=== PATIENT | female | born 1975 | race Caucasian/White ===

== ENCOUNTER 2016-04-25 07:11 | Day surgery (SDC) | payer OTHER, BC ==
[2016-04-25] MEDS ORDERED: CEFAZOLIN SODIUM 2 GRAM DUPLEX 2 G in Premix (D5W) 50 ml 1 EACH IV PRN (07:16)
[2016-04-25] MEDS ORDERED: LIDOCAINE 1% 2 ML VIAL ID PRN (07:16)
[2016-04-25] MEDS ORDERED: LACTATED RINGERS 1,000 ML IV SCH ×2 (07:16→09:45)
[2016-04-25] MEDS ORDERED: IV START KIT ONE (07:19)
[2016-04-25] MEDS ORDERED: CEFAZOLIN SODIUM 2 GRAM PREMIX 100 ML IV ONE (07:20)
[2016-04-25] MEDS ORDERED: MIDAZOLAM HCL 5 MG/5 ML VIAL ONE (08:08)
[2016-04-25] MEDS ORDERED: PROPOFOL 20 ML IV ONE (08:08)
[2016-04-25] MEDS ORDERED: KETAMINE HCL UD SYRINGE 100 MG/2 ML IV ONE (08:08)
[2016-04-25] MEDS ORDERED: MORPHINE SULFATE (DURAMORPH) 1 MG/ML 10ML AMP ONE (08:10)
[2016-04-25] MEDS ORDERED: BUPIVACAINE 0.75% SPINAL AMPUL 2 ML ONE (08:10)
[2016-04-25] MEDS ORDERED: SPINAL PROCEDURAL TRAY 1 EACH ONE (09:23)
[2016-04-25] MEDS ORDERED: PROMETHAZINE HCL 25 MG/ML VIAL IM PRN (09:44)
[2016-04-25] MEDS ORDERED: EPHEDRINE SULFATE 50 MG/ML 1ML VIAL IV PRN (09:44)
[2016-04-25] MEDS ORDERED: FENTANYL 100 MCG/2 ML VIAL IV PRN (09:44)
[2016-04-25] MEDS ORDERED: ATROPINE SULFATE 0.4 MG/1 ML VIAL IV PRN (09:44)
[2016-04-25] MEDS ORDERED: HYDROMORPHONE HCL 1 MG/ML SYRINGE IV PRN ×2 (09:44→10:18)
[2016-04-25] MEDS ORDERED: NALOXONE HCL 0.4 MG/ML VIAL IV PRN ×2 (09:44)
[2016-04-25] MEDS ORDERED: ONDANSETRON 4 MG/2ML 2 ML VIAL IV PRN ×2 (09:44→12:18)
[2016-04-25] MEDS ORDERED: OXYCODONE/ACETAMINOPHEN 5/325 MG TABLET PO PRN (09:44)
[2016-04-25] MEDS ORDERED: EPHEDRINE SULFATE UD SYR 25 MG 25 MG/5 ML SYRINGE IV ONE (10:08)
--- NOTE | 2016-04-25 11:17 | OP ---
Carolina Foote DATE OF ADMISSION: 04/25/2016 SURGEON: Sriram Rodriges M.D. [employer]CH[employer]IC SURGEON: Dr. Herbert Fowler. PREOPERATIVE DIAGNOSES: 1. Menorrhea. 2. Uterine leiomyoma's. 3. Iron deficiency anemia secondary to chronic blood loss. POSTOPERATIE DIAGNOSES: 1. Menorrhea. 2. Uterine leiomyoma's. 3. Iron deficiency anemia secondary to chronic blood loss. OPERATION: Vaginal hysterectomy. ANESTHESIA: Spinal. FINDINGS: The uterus was approximately 10 weeks size. There were multiple leiomyoma's. There was also a large submucous leiomyoma. TECHNICAL PROCEDURE: After induction of satisfactory spinal anesthesia the patient was placed in the supine lithotomy position and prepped and draped in the usual fashion. A weighted speculum was placed in the vagina and the cervix grasped with a double tooth tenaculum. The cul-de-sac was entered posteriorly using the Coffey scissors and the vaginal cuff was incised circumferentially at this level. The bladder was advanced cephalad and the vesicouterine peritoneum identified and incised with the Coffey scissors and a Mady retractor placed anteriorly. The left uterosacral ligament was clamped with a Kathryn clamp, divided, and sutured ligated with 0 Vicryl. The same procedure was repeated on the right. The right cardinal ligament was clamped with a Kathryn clamp, divided and suture ligated with 0 Vicryl. The same procedure was repeated on the left. The left uterine artery was clamped with a Kathryn clamp, divided, and suture ligated with 0 Vicryl. The same procedure was repeated on the right. The right round ligament was clamped with Kathryn clamp, divided, and suture ligated with 0 Vicryl. The same procedure was repeated on the left. The left uteroovarian ligament and Fallopian tube were then crossed clamped with a Kathryn clamp and divided. The same procedure was repeated on the right thus removing the uterus. The pedicles thus created were suture ligated with 0 Vicryl. When hemostasis in the pedicles was assured the peritoneum was closed with a purse string suture of 0 Vicryl. The vaginal cuff was then closed from side to side using interrupted figure of eight sutures of 0 Vicryl. The instruments were removed from the vagina. The bladder was catheterized with a straight catheter and 300 mL of clear urine was obtained. The procedure was then terminated. The patient tolerated the procedure well and left the operating room awake and in good condition. There were no complications. Instrument, needle, and sponge counts were correct. The estimated blood loss was 100 mL. There was no blood replacement. JOB: [id number]
[2016-04-25 11:38] VITALS: BMI 21.9
[2016-04-25] MEDS ORDERED: ALBUTEROL SULFATE MDI 60 PUFFS/INHALER IH PRN (12:00)
[2016-04-25] MEDS ORDERED: PROMETHAZINE HCL 25 MG TABLET PO PRN (12:18)
[2016-04-25] MEDS ORDERED: DIPHENHYDRAMINE HCL 50 MG/1 ML VIAL IV PRN (12:18)
[2016-04-25] MEDS ORDERED: ACETAMINOPHEN 325 MG TABLET PO PRN (12:18)
[2016-04-25] MEDS ORDERED: MAGNESIUM HYDROXIDE/AL HYDROX 30 ML UDCUP PO PRN (12:18)
[2016-04-25] MEDS ORDERED: MAG HYDROX/AL HYDROX/SIMETH 30 ML UDCUP PO PRN (12:18)
[2016-04-25] MEDS ORDERED: MENTHOL/CETYLPYRD 1 EACH LOZENGE PO PRN (12:18)
[2016-04-25] MEDS ORDERED: BLISTEX LIPSTICK 1 EACH TP PRN (12:18)
[2016-04-25] MEDS ORDERED: DOCUSATE SODIUM 100 MG CAPSULE PO PRN (12:18)
[2016-04-25] MEDS ORDERED: PUMP TUBING ONE (12:51)
[2016-04-25] MEDS: D5 1/4NS with 20 mEq KCL 1,000 ML IV SCH ×2 (12:55→21:15)
[2016-04-25] MEDS: FLUTICASONE PROPIONATE 50 MCG/SPRAY 120 SPRAYS/16 G INH NS SCH (23:20)
[2016-04-25] MEDS ORDERED: OXYCODONE HCL 5 MG TABLET ONE (23:32)
[2016-04-25] MEDS ORDERED: OXYCODONE HCL 5 MG TABLET PO PRN (23:50)
[2016-04-26] MEDS: D5 1/4NS with 20 mEq KCL 1,000 ML IV SCH (04:55)
[2016-04-26 06:25] LABS: HEMATOCRIT 29.8 % (37.0-47.0); HEMOGLOBIN 8.7 gm/l (12.0-16.0)
[2016-04-26 08:26] VITALS: BP 121/65
[2016-04-26] MEDS: FLUTICASONE PROPIONATE 50 MCG/SPRAY 120 SPRAYS/16 G INH NS SCH (08:40)
[2016-04-26] MEDS ORDERED: LORATADINE 10 MG TABLET PO SCH (09:00)
--- NOTE | 2016-04-26 09:49 | PDOC5 ---
Hospital Course: ADMIT DATE: 04/25/2016 DISCHARGE DATE: 04/26/2016 ADMISSION DIAGNOSES: Hypermenorrhea, uterine leiomyomas. Irn defficiency anemia secondary to chronic blood loss. PROCEDURES: Vaginal hysterectomy. HISTORY OF PRESENT ILLNESS: 41 year old presenting with very heavy flow with her menses which has not been contorlled with oral contraceptives. She was not a candidate for a Mirena Iud because of leiomyomas. HOSPITAL COURSE: The patient on the day of admission was taken to surgery where she underwent a vaginal hysterectomy. Her postoperative course was uncomplicated. By day of discharge the patient is ambulating, eating, voiding, and passing flatus without difficulty. Pain is controlled. - Objective General: Afebrile, No Acute Distress Abdomen: Soft, Non-Distended Genitourinary: Indwelling Urinary Cath, Other (Patient had urinary retention yesterday and we will try the catheter out agin today.) Extremities: Full ROM Skin: Normal Color, Warm, Dry, Intact Neurological: Grossly Intact Psych/Mental Status: Normal Affect - Discharge Plan Condition: Good Disposition: Home Additional Instructions: Maintain pelvic rest. Report if you have heavy bleeding, worsening pain, or a temperature over 100. Prescriptions: Docusate Sodium [COLACE 100 MG CAPSULE (SHF)] 100 mg PO DAILY PRN #30 cap PRN Reason: Constipation Oxycodone HCl [ROXICODONE 5 MG IR TABLET (SHF)] 5 mg PO Q4H PRN #30 tab PRN Reason: Pain Follow-Up: Sriram Rodriges MD [Staff Physician] - In 2 weeks
[2016-04-26] MEDS ORDERED: OXYCODONE HCL 5 MG TABLET PO PRN (12:02)
--- NOTE | 2016-04-29 14:18 | SURGPATH ---
[facility] [address] [place] [id number] Patient Name: SHIRLEY SCHUMACHER MR#: [id number] : 1975 Gender: F Specimen #: [id number] Collected: 04/25/2016 Received: 04/28/2016 Reported: 04/29/2016 Submitting Phys: CHUYITA OCHOA Copy To Phys: [facility] Clinical History / Pre-Operative Diagnosis: LEIOMYOMA OF UTERUS; HYPERMENORRHEA Specimen Source / Surgical Procedure Performed: UTERUS Interpretation: UTERUS AND CERVIX, HYSTERECTOMY: - CERVIX: NO DIAGNOSTIC ABNORMALITIES - ENDOMETRIUM: INACTIVE ENDOMETRIUM - MYOMETRIUM: SUBMUCOSAL AND INTRAMURAL LEIOMYOMAS Electronically Signed Out Aditi Beck M.D. Gross Description: The specimen is received in a formalin filled container labeled with the patient's name and "uterus". A 237 g, intact uterus and cervix is 10.5 x 7.5 x 7.0 cm. The serosa is smooth and diaz. The ectocervix is focally ecchymotic, pink-diaz and has areas of granularity surrounding a patent os. The endocervical canal is patent. The endometrium is flat, uniform diaz and averages 0.2 cm. There is a 3.8 x 3.5 x 2.7 cm endometrial polyp which has a whorled, white-beaulieu cut surface. The dense diaz myometrium is thickened to 2.5 cm and contains multiple bulging, well circumscribed, whorled, white-beaulieu intramural nodules up to 2 cm. Summary of sections: A-serosa B-anterior and posterior cervix C-anterior endomyometrium D-posterior endomyometrium E-large polypoid submucosal nodule E-W-ldqjimxzen nodules Riana Scott Microscopic Description: Sections of the serosa are unremarkable. The cervix shows transformation zone without dysplasia. The endometrium is inactive with tubular glands. There is a submucosal leiomyoma with overlying atrophic endometrium. Multiple intramural leiomyomas are also seen. No cytologic atypia, coagulative necrosis, or increased mitoses are seen. One shows degenerative changes. 1: [id number] D25.0
== END 2016-04-26 11:38 | disposition home or self-care (01) ==
LOC: SDC 07:11 → MS 11:59 → SDC 04-26 11:38
PROVIDERS: ATTEND Obstetrics & Gynecology
PROC: 0UT97ZZ Resection of Uterus, Via Natural or Artificial Opening (ICD-10-PCS; principal; 2016-04-25)
PROC: 0UTC7ZZ Resection of Cervix, Via Natural or Artificial Opening (ICD-10-PCS; 2016-04-25)
DX: D25.0 Submucous leiomyoma of uterus (principal); N92.0 Excessive and frequent menstruation with regular cycle; D50.0 Iron deficiency anemia secondary to blood loss (chronic); R33.8 Other retention of urine; J45.909 Unspecified asthma, uncomplicated; K59.09 Other constipation; L30.9 Dermatitis, unspecified; D47.3 Essential (hemorrhagic) thrombocythemia; Z88.0 Allergy status to penicillin; Z88.6 Allergy status to analgesic agent
CPT/HCPCS: 58260; 85014; 85018; 36415; J2274; A9270 ×3; J2250; J2405; J7120; J0690